=== PATIENT | male | born 1995 | race Caucasian/White ===

== ENCOUNTER 2016-11-01 20:28 | Emergency (ER) | payer OTHER ==
[~2016-11-01] VITALS: Ht 182.9 cm; Wt 67.6 kg
[2016-11-01 20:35] VITALS: TEMP 36.9; Ht 182.9 cm; Wt 67.6 kg
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
--- NOTE | 2016-11-01 21:35 | DIAGNOSTIC IMAGING REPORT ---
RIGHT FOOT MIN 3 VIEWS ROUTINE, RIGHT ANKLE MIN 3 VIEWS ROUTINE CLINICAL HISTORY: right foot pain, swelling fifth metatarsal Right. Right ankle pain. COMPARISON STUDY: Right ankle 09/26/2005. FINDINGS: Essentially nondisplaced fracture within the distal cuboid bone which extends to the tarsometatarsal joint. No additional fractures or dislocation identified within the right ankle or right foot. Soft tissue swelling within the lateral aspect of the midfoot. The Lisfranc joint appears intact. IMPRESSION: 1. Nondisplaced cuboid bone fracture. 2. No acute fracture or dislocation within the right ankle. Electronically signed by: Victorino Colby M.D. 11/01/2016 9:34 PM Dictated Date/Time: 11/01/2016 9:31 PM
[2016-11-01 22:04] VITALS: BP 126/70; PULSE 72; O2SAT 98
== END 2016-11-01 22:05 | disposition home or self-care (01) ==
LOC: C.EDB 20:31 → C.EDD 22:05
DX: S92.214A Nondisplaced fracture of cuboid bone of right foot, initial encounter for closed fracture (principal); V18.0XXA Pedal cycle driver injured in noncollision transport accident in nontraffic accident, initial encounter; Y92.89 Other specified places as the place of occurrence of the external cause